=== PATIENT | female | born 1980 | race Asian ===

== ENCOUNTER 2023-03-12 18:10 | Inpatient (IN) | payer BC, OTHER ==
[~2023-03-12] VITALS: Ht 165.1 cm; Wt 59.4 kg
[~2023-03-12 18:10] MED LIST: FERR325E14 PO; VARE1TAB PO; ZOLP5TAB1 PO
[2023-03-12 19:12] VITALS: BP 114/63; PULSE 83; RESP 18; TEMP 97.5; O2SAT 100
[2023-03-12 19:48] LABS: BASOPHILS # (AUTO) 0.1 K/uL (0.00-0.22); EOSINOPHILS % (AUTO) 0.7 % (0.0-4.0); LYMPHOCYTES % (AUTO) 17.3 % (20.5-51.1); MEAN CORPUSCULAR HEMOGLOBIN 16 pg (27-31); MEAN CORPUSCULAR HGB CONC 27 g/dL (33-37); MEAN CORPUSCULAR VOLUME 59.9 fL (80-94); MONOCYTES # (AUTO) 0.3 K/uL (0.8-1.0); MONOCYTES % (AUTO) 5.6 % (1.7-9.3); NEUTROPHILS # (AUTO) 4.2 K/uL (1.8-7.7); NEUTROPHILS % (AUTO) 75.4 % (42.2-75.2); PLATELET COUNT (AUTO) 190 K/uL (140-450); RED BLOOD CELL COUNT(AUTO) 2.44 MIL/uL (4.20-5.40); RED CELL DISTRIBUTION WIDTH 22.8 % (11.6-13.7); WHITE BLOOD COUNT (AUTO) 5.6 K/uL (4.8-10.8)
[2023-03-12 19:54] LABS: HEMATOCRIT 14.6 % (36-48)
[2023-03-12 20:10] LABS: ANION GAP 13.1 (8-16); CALCIUM 10.2 mg/dL (8.5-10.1); CARBON DIOXIDE 25.5 mmol/L (21-32); CREATININE 0.6 mg/dL (0.6-1.3); POTASSIUM 3.6 mmol/L (3.5-5.1); TOTAL BILIRUBIN 0.4 mg/dL (0.0-1.0); TOTAL PROTEIN, SERUM 7.6 g/dL (6.4-8.2)
[2023-03-12 20:19] LABS: INR 1.02 (0.8-1.2); PROTHROMBIN TIME 10.7 secs (10.8-13.4)
[2023-03-13 01:35] VITALS: BP 116/70; PULSE 81; PULSE 82; RESP 18; RESP 22; TEMP 98.3; O2SAT 100
[2023-03-13] MEDS ORDERED: LORazepam 2 MG/ML VIAL IVP PRN (02:40)
[2023-03-13] MEDS ORDERED: ONDANSETRON 4 MG/2 ML VIAL IVP PRN (02:40)
[2023-03-13] MEDS ORDERED: HYDROcodone/APAP 5/325 MG 1 TAB TAB PO PRN (02:40)
[2023-03-13] MEDS ORDERED: ACETAMINOPHEN 325 MG TAB PO PRN (02:40)
[2023-03-13 04:00] VITALS: BP 119/70; PULSE 90; RESP 18; TEMP 98.1; O2SAT 96
[2023-03-13 06:53] LABS: BASOPHILS % (AUTO) 0.7 % (0.0-2.0); EOSINOPHILS # (AUTO) 0.1 K/uL (0-0.4); EOSINOPHILS % (AUTO) 1.3 % (0.0-4.0); LYMPHOCYTES % (AUTO) 19.2 % (20.5-51.1); MEAN CORPUSCULAR HEMOGLOBIN 20 pg (27-31); MEAN CORPUSCULAR HGB CONC 29 g/dL (33-37); MEAN CORPUSCULAR VOLUME 67.8 fL (80-94); MONOCYTES # (AUTO) 0.3 K/uL (0.8-1.0); MONOCYTES % (AUTO) 5.1 % (1.7-9.3); NEUTROPHILS # (AUTO) 3.9 K/uL (1.8-7.7); NEUTROPHILS % (AUTO) 73.7 % (42.2-75.2); PLATELET COUNT (AUTO) 172 K/uL (140-450); RED CELL DISTRIBUTION WIDTH 28.1 % (11.6-13.7); WHITE BLOOD COUNT (AUTO) 5.3 K/uL (4.8-10.8)
[2023-03-13 07:03] LABS: ANION GAP 13.5 (8-16); CALCIUM 9.6 mg/dL (8.5-10.1); CREATININE 0.5 mg/dL (0.6-1.3); POTASSIUM 3.5 mmol/L (3.5-5.1)
[2023-03-13 07:37] LABS: HEMOGLOBIN 6.2 g/dL (12.0-16.0)
[2023-03-13 08:00] VITALS: BP 130/79; PULSE 70; PULSE 85; RESP 18; RESP 22; TEMP 97.9; O2SAT 98; O2SAT 99
[2023-03-13] MEDS ORDERED: FERR240T PO (17:39)
[2023-03-13] MEDS ORDERED: MEDR5TAB PO (17:39)
[2023-03-13] MEDS ORDERED: ZOLPIDEM 5 MG TAB PO SCH (21:00)
== END 2023-03-13 18:17 | disposition home or self-care (01) | DRG 812 ==
LOC: MED 18:10 → MMU 21:36 → MTU 03-13 00:46
PROVIDERS: ADMIT Preventive Medicine Preventive Medicine/Occupational Environmental Medicine; ATTEND Preventive Medicine Preventive Medicine/Occupational Environmental Medicine
PROC: 30233N1 Transfusion of Nonautologous Red Blood Cells into Peripheral Vein, Percutaneous Approach (ICD-10-PCS; principal; 2023-03-12)
DX: D64.9 Anemia, unspecified (principal); N92.0 Excessive and frequent menstruation with regular cycle; G47.00 Insomnia, unspecified; D25.9 Leiomyoma of uterus, unspecified
CPT/HCPCS: 36415; 36430; 76830; 80048; 80053; 84484; 85018; 85025; 85610; 85730; 86886; 86900; 86901; 86920; 87081; 93005; 99291; P9016; Q0092